=== PATIENT | male | born 1975 | race Caucasian/White ===

== ENCOUNTER 2020-05-04 11:05 | Outpatient (REF) | payer OTHER, SELFPAY | END 2020-05-04 11:06 | disposition home or self-care (01) | LOC: HO.LAB 11:05 | PROVIDERS: Visit Provider Internal Medicine | DX: Z20.828 Contact with and (suspected) exposure to other viral communicable diseases (principal) | CPT/HCPCS: C9803; U0003 ==

== ENCOUNTER 2020-07-03 14:49 | Outpatient (REF) | payer OTHER, SELFPAY ==
--- NOTE | 2020-07-03 | PFT_ITS ---
FLOWS: FEV1 of 68% of predicted at 2.56 L. FVC 80% of predicted at 3.78 L. FEV1 to FVC ratio of 0.68. Positive bronchodilator response. LUNG VOLUMES: Total lung capacity 88% of predicted at 5.63 L. Residual volume 105% of predicted at 1.82 L. Slow vital capacity 82% of predicted at 3.80 L. Expiratory reserve volume 53% of predicted at 0.75 L. Diffusion capacity is normal. IMPRESSION: Moderate obstructive ventilatory defect with positive bronchodilator response. Decreased expiratory reserve volume suggests extrathoracic restriction likely secondary to abdominal obesity. This test result can be observed in a patient with an uncontrolled asthma. Clinical correlation is advised. MD TIMOTHY Huang/MODL / [id number]
== END 2020-07-03 14:50 | disposition home or self-care (01) ==
LOC: HO.RESP 14:49
PROVIDERS: PCP Family Medicine; Visit Provider Family Medicine
DX: J45.40 Moderate persistent asthma, uncomplicated (principal)
CPT/HCPCS: 94060; 94727; 94729

== ENCOUNTER 2020-08-19 14:49 | Outpatient (REF) | payer OTHER, SELFPAY ==
[2020-08-19 16:19] LABS: COVID-19 Test Positive (Negative); IDNOW Serial# 55D5AD1C
== END 2020-08-19 14:50 | disposition home or self-care (01) ==
LOC: HO.LAB 14:49
PROVIDERS: Visit Provider Internal Medicine
DX: Z20.822 Contact with and (suspected) exposure to COVID-19 (principal)
CPT/HCPCS: 36415; 87635; C9803

== ENCOUNTER 2020-08-25 15:30 | Outpatient (REF) | payer OTHER, SELFPAY | END 2020-08-25 15:31 | disposition home or self-care (01) | LOC: HO.LAB 15:30 | PROVIDERS: Visit Provider Internal Medicine | DX: Z20.822 Contact with and (suspected) exposure to COVID-19 (principal) | CPT/HCPCS: C9803; U0003; U0005 ==